=== PATIENT | male | born 1955 | race Caucasian/White ===

== ENCOUNTER 2019-07-24 13:11 | Outpatient (CLI) | payer OTHER ==
--- NOTE | 2019-07-25 10:02 | CT ---
CT HEAD WITHOUT CONTRAST CALCIUM SCORING: Date: 07/24/19 HISTORY: Precordial pain. COMPARISON: None. FINDINGS: The visualized lung parenchyma is normal. No pericardial effusion. Visualized ribs are intact. Visualized upper abdomen is unremarkable. Total Agatston score is 174 involving the left anterior descending coronary artery. IMPRESSION: Total Agatston score is 174, correlating to moderate risk. Moderate calcium detected in the coronary arteries and confirms the presence of atherosclerotic plaque. Moderate risk of having a cardiovascula r event. POS: OFF
== END 2019-07-24 13:12 | disposition home or self-care (01) ==
LOC: BICCT 13:11
PROVIDERS: ATTEND Internal Medicine Interventional Cardiology
DX: R07.2 Precordial pain (principal); I25.10 Atherosclerotic heart disease of native coronary artery without angina pectoris
CPT/HCPCS: 75571